=== PATIENT | male | born 1950 | race Caucasian/White ===

== ENCOUNTER 2020-04-16 10:06 | Outpatient (CLI) | payer MEDICARE, BC, SELFPAY ==
[2020-04-16 10:48] LABS: Basophils Percent Auto 0.7 % (0.2-1.2); Eosinophils Absolute Auto 0.2 K/mm3 (0-0.3); Eosinophils Percent Auto 4.2 % (0-4.4); Hematocrit 40.7 % (42.0-52.0); Hemoglobin 14.4 g/dL (14.0-18.0); Immature Granulocyte Absolute 0.01 K/mm3 (0.00-0.031); Immature Granulocyte Percent A 0.2 % (0-0.5); Lymphocytes Absolute Auto 1.35 K/mm3 (0.9-3.2); Lymphocytes Percent Auto 23.8 % (18.3-44.2); Mean Corpuscular HGB Conc 35.4 g/dl (32-36); Mean Corpuscular Hemoglobin 32.1 pg (26-34); Mean Corpuscular Volume 90.8 fl (80-100); Mean Platelet Volume 9.4 fl (7.4-10.4); Monocytes Absolute Auto 0.6 K/mm3 (0.1-0.6); Monocytes Percent Auto 10.7 % (2.6-8.5); Neutrophils Absolute Auto 3.4 K/mm3 (1.3-6.7); Neutrophils Percent Auto 60.4 % (45.5-73.1); Platelet Count Result 236 k/mm3 (150-375); Red Blood Count 4.48 M/mm3 (4.6-6.20); Red Cell Distribution Width 11.5 % (11.5-14.5); White Blood Count 5.7 K/mm3 (4.5-10.0)
[2020-04-16 11:01] LABS: Alanine Aminotransferase 29 U/L (4-50); Albumin Level 4.3 g/dL (3.5-5.1); Alkaline Phosphatase 46 U/L (38-126); Anion Gap 7 mmol/L (8-16); Aspartate Amino Transferase 31 U/L (17-59); Bilirubin,Total 0.8 mg/dL (0.2-1.3); Blood Urea Nitrogen 21 mg/dL (9-20); Calcium 9.9 mg/dL (8.4-10.2); Carbon Dioxide 32 mmol/L (22-30); Chloride 101 mmol/L (98-107); Cholesterol 186 mg/dL (0-200); Estimated Glomerular Filt Rate > 60; Glucose 122 mg/dL (75-110); HDL Direct 39 mg/dL; Potassium 4.2 mmol/L (3.4-5.0); Sodium 140 mmol/L (137-145); Triglycerides 164 mg/dL (<150)
[2020-04-16 11:11] LABS: LDL Cholesterol Direct 105 mg/dL
[2020-04-16 11:38] LABS: Vitamin D 25 Hydroxy 32.3 ng/mL
[2020-04-16 11:52] LABS: Thyroid Stimulating Hormone Reflex 0.849 uIU/mL (0.465-4.68)
== END 2020-04-16 10:07 | disposition home or self-care (01) ==
PROVIDERS: PCP Family Medicine; Visit Provider Nurse Practitioner
DX: E55.9 Vitamin D deficiency, unspecified (principal); I10 Essential (primary) hypertension; E78.5 Hyperlipidemia, unspecified; R53.83 Other fatigue
CPT/HCPCS: 36415; 80053; 80061; 82306; 84443; 85025

== ENCOUNTER 2020-04-25 07:01 | Outpatient (CLI) | payer MEDICARE, BC, SELFPAY ==
--- NOTE | ~2020-04-25 | MR_ITS ---
EXAMINATION: MR knee RT wo con DATE: 04/25/2020 08:03 INDICATION: Right knee pain TECHNIQUE: Magnetic resonance imaging (MRI) of the right knee was performed without intravenous contr ast. Sequences included coronal PD-weighted FSE, coronal PD-weighted FS FSE, sagittal T2-weighted FS E, sagittal PD-weighted FS FSE and axial PD weighted fat saturated FSE. COMPARISON: None. FINDINGS: Medial compartment: Medial meniscus is normal. Partial-thickness chondral ulceration and fissuring involving greater than 50% the cartilage thickness but without degenerative subchondral changes at the anterior weightbeari ng medial femoral condyle. More discrete 5 x 4 mm relatively well-defined deep chondral ulceration at the posterior weightbearing medial femoral condyle. Mild partial thickness cartilage loss with minim al chondral surface regularity at the medial tibial plateau. Lateral compartment: There is a longitudinal vertical tear extending approximately 6 mm AP along the inner third of the maura dy of the lateral meniscus which is seen on both the axial and coronal images. Articular cartilage is normal. Patellofemoral compartment: Small region of partial-thickness chondral ulceration at the medial trochlea. There is a small delami nating tear near the bone chondral interface which extends a couple millimeter laterally from the med ial margin of the cartilage of the medial patellar facet. Ligaments and tendons: Anterior and posterior cruciate ligaments are normal. The medial collateral ligament and fibular sheela ateral ligament complex are normal. The extensor mechanism is normal. The visualized medial and later al hamstring tendons as well as the iliotibial band are normal. Fluid: Physiologic amount of fluid in the joint space. No loose osteochondral bodies identified. Osseous/other: Normal marrow signal. No fracture or pathologic marrow replacing process. Is edema at the superficial suprapatellar fat pad which can be seen with fat pad impingement syndrome. IMPRESSION: 1. Small longitudinal vertical tear in the inner third of the body of the lateral meniscus. 2. 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 3. Edema in the superficial suprapatellar fat pad which can be seen with fat pad impingement syndrome . Reviewed, dictated and finalized at location A. R IMPRESSION: 1. Small longitudinal vertical tear in the inner third of the body of the later al meniscus. 2. Mild medial and patellofemoral osteoarthritis with moderate grade chondromal acia. 3. Edema in the superficial suprapatellar fat pad which can be seen with fat pa d impingement syndrome.
== END 2020-04-25 07:02 | disposition home or self-care (01) ==
LOC: ANHIMG 07:03
PROVIDERS: PCP Family Medicine; Visit Provider Nurse Practitioner
DX: S83.281A Other tear of lateral meniscus, current injury, right knee, initial encounter (principal); M17.11 Unilateral primary osteoarthritis, right knee; M94.261 Chondromalacia, right knee; R60.0 Localized edema
CPT/HCPCS: 73721

== ENCOUNTER 2020-11-22 11:20 | Outpatient (CLI) | payer MEDICARE, SELFPAY ==
[2020-11-22 11:36] LABS: Basophils Absolute Auto 0.05 K/mm3 (0.00-0.10); Eosinophils Percent Auto 7.8 % (1.0-6.0); Hematocrit 41.3 % (37.0-46.0); Hemoglobin 14.3 g/dL (12.4-15.3); Immature Granulocyte Absolute 0.01 K/mm3 (0.00-0.00); Immature Granulocyte Percent A 0.2 % (0.0-0.0); Lymphocytes Absolute Auto 1.23 K/mm3 (1.10-4.50); Mean Corpuscular HGB Conc 34.6 g/dL (32.0-36.0); Mean Corpuscular Hemoglobin 31.8 pg (27.0-31.0); Mean Corpuscular Volume 91.8 fL (78.0-102.0); Mean Platelet Volume 8.9 fl (8.7-11.0); Monocytes Absolute Auto 0.48 K/mm3 (0.10-0.90); Monocytes Percent Auto 9.4 % (2.0-11.0); Neutrophils Percent Auto 57.6 % (50.0-70.0); Platelet Count Result 223 K/mm3 (150-420); Red Cell Distribution Width 11.9 % (11.6-14.4); White Blood Count 5.1 K/mm3 (4.8-10.8)
[2020-11-22 11:55] LABS: Hemoglobin A1C 5.7 % (<5.7)
[2020-11-22 13:08] LABS: Alanine Aminotransferase 30 U/L (16-63); Albumin Level 4.2 g/dL (3.4-5.0); Alkaline Phosphatase 54 U/L (46-116); Anion Gap 11 mmol/L (8-16); Aspartate Amino Transferase 16 U/L (15-37); Bilirubin,Total 0.7 mg/dL (0.00-1.00); Blood Urea Nitrogen 16 mg/dL (7-18); Carbon Dioxide 31 mmol/L (21-32); Chloride 106 mmol/L (98-108); Cholesterol 164 mg/dL (0-200); Estimated Glomerular Filt Rate 51; Glucose 99 mg/dL (70-99); HDL Direct 44 mg/dL (40-60); LDL Cholesterol Calculated 88 mg/dL (<130); Osmolality Calculated 307 mOsm/kg (285-295); Potassium 3.9 mmol/L (3.5-5.1); Prostate Specific Antigen 1.2 ng/mL (< OR = 4.0); Sodium 148 mmol/L (136-145); Total Protein 7.2 g/dL (6.4-8.2); Triglycerides 160 mg/dL (0-150)
[2020-11-22 13:44] LABS: Thyroid Stimulating Hormone Reflex 0.58 u/IU/mL (0.36-3.74)
[2020-11-27 20:02] LABS: Vitamin D 25 Hydroxy 28 ng/mL (30-100)
== END 2020-11-22 11:21 | disposition home or self-care (01) ==
PROVIDERS: PCP Family Medicine; Visit Provider Family Medicine
DX: E78.5 Hyperlipidemia, unspecified (principal); I10 Essential (primary) hypertension; Z00.00 Encounter for general adult medical examination without abnormal findings; R73.9 Hyperglycemia, unspecified; E55.9 Vitamin D deficiency, unspecified; Z12.5 Encounter for screening for malignant neoplasm of prostate
CPT/HCPCS: 36415; 80053; 80061; 82306; 83036; 84153; 84443; 85025; G0103

== ENCOUNTER 2021-01-18 01:10 | Day surgery (SDC) | payer MEDICARE, BC, SELFPAY ==
[2021-01-08 15:11] VITALS: BMI 29.7
[2021-01-18 12:26] VITALS: BP 155/81; PULSE 63; RESP 18; TEMP 36.2; O2SAT 98; BMI 30.2
[2021-01-18] MEDS: LACTATED RINGERS 1,000 ML 150 ML IV CONT (12:40)
--- NOTE | 2021-01-18 13:09 | PM.HPGS ---
History of Present Illness History of Present Illness Consent: Risks, benefits, and alternatives have been discussed and questions answered. Patient agrees to proceed with procedure. Chief complaint: hx of colon polyps Narrative: Alfredo Benson is a 70 year old male with colon polyps about 10 years ago Review of Systems Constitutional: Constitutional: Denies headache(s) and Denies weakness Eyes: Eyes: Denies blurry vision ENT: Reports Normal hearing present, Denies headache(s) and Denies neck pain Cardiovascular: Cardiovascular: Denies chest pain and Denies dyspnea Respiratory: Respiratory: Denies dyspnea Gastrointestinal: Gastrointestinal: Reports no additional gastrointestinal complaints Genitourinary: Genitourinary: Denies dysuria Musculoskeletal: Musculoskeletal: Denies neck pain Integumentary/Breasts: Skin/Breast: Denies dry skin Neurologic: Reports Normal hearing present, Denies headache(s) and Denies weakness Psychiatric: Psychiatric: Denies anxiety Endocrine: Endocrine: Denies change in body appearance Hematologic/Lymphatic: Hematologic/Lymphatic: Denies easy bleeding Allergic/Immunologic: Allergic/Immunologic: Denies urticaria PMFSH Past Medical History Medical History (Updated 01/18/21 @ 13:11 by Linus Alex MD) Colon cancer screening Dyslipidemia GERD without esophagitis History of colon polyps Hypertension Osteoarthritis Restless legs syndrome Surgical History Surgical History History of appendectomy (~1965) Family History Family History Other Diabetes mellitus Hypertension Social History Social History Smoking status: Former smoker Tobacco type: cigarettes Smoking end date: 05/18/83 Alcohol intake: current Alcohol use details: 4 bottles of wine per week Living arrangements: with family Spiritual care concerns: No Meds Home Medications and Allergies Home Medications Medication Instructions Recorded Confirmed Type lisinopril 20 1 tablet PO DAILY #90 tablet 10/18/20 01/08/21 Rx mg-hydrochlorothiazide 12.5 mg tablet famotidine 20 mg tablet 20 mg PO BID #180 tablet 11/22/20 01/08/21 Rx simvastatin 40 mg tablet 40 mg PO QHS tablet 11/22/20 01/08/21 History icosapent ethyl 1 gram capsule 2 g PO BID #360 cap 12/25/20 01/08/21 Rx ropinirole 2 mg tablet 2 mg PO QHS #90 tablet 12/31/20 01/08/21 Rx cholecalciferol (vitamin D3) 25 mcg PO DAILY 01/08/21 01/08/21 History [Vitamin D3] Allergies Allergy/AdvReac Type Severity Reaction Status Date / Time codeine Allergy Other Verified 01/18/21 12:26 Vital Signs Vital Signs - 24 hr 01/18/21 12:26 Temperature 97.2 F L Pulse Rate 63 Respiratory Rate 18 Blood Pressure 155/81 H Pulse Oximetry 98 Exam Const: General: comfortable and no acute distress HENMT: General nose exam: Normal nares present Eyes: General: appearance normal, both eyes and all related structures Neck: Neck: no JVD Resp: Auscultation: clear to auscultation bilaterally Cardio: Rate: regular rate Rhythm: regular rhythm GI: Inspection: non-distended GI Palp: Yes Soft to palpation Skin: General skin exam: normal color Neuro: General: gait normal Speech: normal speech Extrem: General: normal to inspection Psych: Mental Status: mental status grossly normal Assessment and Plan Assessment and plan (1) Colon cancer screening: Code(s): Z12.11 - Encounter for screening for malignant neoplasm of colon Status: Acute Assessment and Plan: colonoscopy
[2021-01-18 13:34] VITALS: BP 102/54; PULSE 67; RESP 18; O2SAT 100
[2021-01-18 13:44] VITALS: BP 110/54; PULSE 61; RESP 20; O2SAT 100
[2021-01-18 13:54] VITALS: BP 109/57; PULSE 66; RESP 21; O2SAT 100
== END 2021-01-18 14:14 | disposition home or self-care (01) ==
PROVIDERS: PCP Family Medicine; Visit Provider Internal Medicine Gastroenterology
PROC: 0DJD8ZZ Inspection of Lower Intestinal Tract, Via Natural or Artificial Opening Endoscopic (ICD-10-PCS; CPT 45378; principal; 2021-01-18 13:15)
DX: Z12.11 Encounter for screening for malignant neoplasm of colon (principal); D12.8 Benign neoplasm of rectum; K64.4 Residual hemorrhoidal skin tags; K57.30 Diverticulosis of large intestine without perforation or abscess without bleeding; K21.9 Gastro-esophageal reflux disease without esophagitis; G25.81 Restless legs syndrome; E78.5 Hyperlipidemia, unspecified; M19.90 Unspecified osteoarthritis, unspecified site; Z87.891 Personal history of nicotine dependence
CPT/HCPCS: 45385; 88305; J2704; J7120

== ENCOUNTER 2021-05-29 11:40 | Outpatient (CLI) | payer MEDICARE, SELFPAY ==
[2021-05-29 12:50] LABS: Alanine Aminotransferase 28 U/L (16-63); Albumin Level 4.2 g/dL (3.4-5.0); Alkaline Phosphatase 50 U/L (46-116); Anion Gap 8 mmol/L (8-16); Aspartate Amino Transferase 22 U/L (15-37); Bilirubin,Total 0.6 mg/dL (0.00-1.00); Blood Urea Nitrogen 15 mg/dL (7-18); Calcium 9.3 mg/dL (8.5-10.1); Carbon Dioxide 32 mmol/L (21-32); Chloride 102 mmol/L (98-108); Estimated Glomerular Filt Rate 54; Glucose 66 mg/dL (70-99); Osmolality Calculated 292 mOsm/kg (285-295); Sodium 142 mmol/L (136-145); Total Protein 7.4 g/dL (6.4-8.2)
== END 2021-05-29 11:41 | disposition home or self-care (01) ==
LOC: CHSLAB 11:42
PROVIDERS: PCP Family Medicine; Visit Provider Family Medicine
DX: I10 Essential (primary) hypertension (principal)
CPT/HCPCS: 36415; 80053

== ENCOUNTER 2021-06-04 08:58 | Outpatient (CLI) | payer MEDICARE, BC, SELFPAY ==
--- NOTE | ~2021-06-04 | US_ITS ---
EXAMINATION: US aorta [facility] DATE: 06/04/2021 09:55 INDICATION: Encounter for screening for cardiovascular disorder. Risk factors of hypertension, hyperc holesterolemia and smoking. TECHNIQUE: Grayscale, color Doppler, and pulsed Doppler images of the aorta and common iliac arteries were obtained. COMPARISON: None. FINDINGS: The proximal aorta measures 2.9 cm. The mid aorta measures 2.1 cm. The distal aorta measures 2.1 cm. The right common iliac artery measures 1.4 cm. The left common iliac artery measures 1.1 cm. IMPRESSION: 1. Normal caliber abdominal aorta. Reviewed, dictated and finalized at location A. R DELIVERY RN
== END 2021-06-04 08:59 | disposition home or self-care (01) ==
LOC: ANHIMG 09:02
PROVIDERS: PCP Family Medicine; Visit Provider Family Medicine
DX: Z13.6 Encounter for screening for cardiovascular disorders (principal)
CPT/HCPCS: 76706

== ENCOUNTER 2021-12-12 09:03 | Outpatient (CLI) | payer MEDICARE, SELFPAY ==
[2021-12-12 09:27] LABS: Hematocrit 40.3 % (37.0-46.0); Mean Corpuscular HGB Conc 34.7 g/dL (32.0-36.0); Mean Corpuscular Hemoglobin 32.4 pg (27.0-31.0); Mean Corpuscular Volume 93.3 fL (78.0-102.0); Mean Platelet Volume 9.7 fl (8.7-11.0); Platelet Count Result 192 K/mm3 (150-420); Red Blood Count 4.32 M/mm3 (4.70-6.10); Red Cell Distribution Width 12.2 % (11.6-14.4); White Blood Count 4.2 K/mm3 (4.8-10.8)
[2021-12-12 10:03] LABS: Band Neutrophils Percent 0 % (0-6); Eosinophils Absolute Manual 0.42 K/mm3 (0.02-0.5); Eosinophils Percent Manual 10 % (1-6); Lymphocytes Absolute Manual 0.67 K/mm3 (1.1-4.5); Lymphocytes Percent Manual 16 % (18-44); Monocytes Absolute Manual 0.79 K/mm3 (0.1-0.90); Monocytes Percent Manual 19 % (3-9); Neutrophils Absolute Manual 2.31 K/mm3 (1.3-6.7); Neutrophils Percent Manual 55 % (46-73); Platelet Estimate Adequate (Adequate); Total Cells Counted 100
[2021-12-12 10:56] LABS: Alanine Aminotransferase 26 U/L (16-63); Albumin Level 4.1 g/dL (3.4-5.0); Alkaline Phosphatase 51 U/L (46-116); Anion Gap 7 mmol/L (8-16); Aspartate Amino Transferase 20 U/L (15-37); Bilirubin,Total 0.5 mg/dL (0.00-1.00); Blood Urea Nitrogen 19 mg/dL (7-18); Calcium 9.2 mg/dL (8.5-10.1); Carbon Dioxide 28 mmol/L (21-32); Chloride 104 mmol/L (98-108); Cholesterol 160 mg/dL (0-200); Estimated Glomerular Filt Rate 51; Glucose 104 mg/dL (70-99); HDL Direct 45 mg/dL (40-60); LDL Cholesterol Calculated 93 mg/dL (<130); Osmolality Calculated 290 mOsm/kg (285-295); Prostate Specific Antigen 0.5 ng/mL (< OR = 4.0); Sodium 139 mmol/L (136-145); Triglycerides 111 mg/dL (0-150)
[2021-12-12 11:00] LABS: Thyroid Stimulating Hormone Reflex 0.92 u/IU/mL (0.36-3.74)
[2021-12-19 14:59] LABS: Vitamin D 25 Hydroxy 59 ng/mL (30-100)
== END 2021-12-12 09:04 | disposition home or self-care (01) ==
LOC: CHSLAB 09:05
PROVIDERS: PCP Family Medicine; Visit Provider Family Medicine
DX: E55.9 Vitamin D deficiency, unspecified (principal); I10 Essential (primary) hypertension; Z12.5 Encounter for screening for malignant neoplasm of prostate; Z00.00 Encounter for general adult medical examination without abnormal findings; E78.5 Hyperlipidemia, unspecified
CPT/HCPCS: 36415; 80053; 80061; 82306; 84153; 84443; 85025; G0103

== ENCOUNTER 2021-12-16 19:45 | Outpatient (CLI) | payer MEDICARE, BC, SELFPAY ==
--- NOTE | 2022-01-15 11:37 | WPDSLEEPSTUD ---
Sleep Study Date of Study: 12/16/21 Ordering Provider: Lisandra Figueredo MD Interpreting Physician: Dariela Orlando MD Sleep Study Type: Polysomnogram Height: 1.7 m Weight: 89.811 kg Body Mass Index: 31.0 Neck Circumference (inches): 18 [place]: 4 Reason for Sleep Study Hypersomnia Sleep History Alfredo Benson is a 71 year old man with multiple episodes of waking at night to go urinate. He also wakes due to pain in his elbows and shoulders. He has restless legs syndrom, normally takes ropinirole BID, but did not have this on the night of his study. He rarely awakens from sleep feeling short of breath. He occasionally awakens at night with heartburn, belching and coughing. He occasionally snores and frequently is loud enough that others complain about it. He rarely has trouble sleeping with a cold. He does not wake up gasping for breath at night. He rarely has breathing problems at night observed by others. He occasionally sweats excessively at night and notices his heart pounding or beating irregularly at night. He frequently falls asleep during the day but rarely involuntarily, never while driving. He rarely has loss of muscle tone with strong emotion. He does not have daytime difficulties at work due to excessive sleepiness. He does not feel paralyzed on waking or falling asleep. He does not have vivid dreamlike scenes upon awakening or falling asleep. He does not feel afraid to go to sleep. He rarely has nightmares. He occasionally remembers his dreams. He frequently has racing thoughts. He rarely feels sad or depressed. He occasionally has anxiety. He occasionally has muscular tension and notices parts of his body jerking. He rarely kicks at night. He occasionally has crawling and aching feelings in his legs. He frequently has leg pain at night. He does not have morning jaw pain. He rarely grinds his teeth at night. He frequently is bothered by pain during the day and frequently awakened by pain during the night. He rarely wakes up feeling stiff in the morning. He frequently wakes up with sore or achy muscles and frequently wakes up with pain in the neck and spine. He has memory problems. Normal bedtime 8:30 p.m. to 10:00 p.m. taking not long to fall asleep typically waking 2-4 times at night for 1/2 hour or so. He always urinates when he wakes up. He wakes in the morning between 5 and 6:00 a.m.. His weekend schedule is the same. He estimates getting 5-8 hours of sleep at night. He does not take naps. He does not feel refreshed after short nap. Habits: Previously was a smoker. Caffeine: He drinks soda daily. He has a half bottle of wine every other day. No recreational drugs. [facility] Past Medical History Medical History BPH (benign prostatic hyperplasia) CKD (chronic kidney disease) stage 3, GFR 30-59 ml/min Dyslipidemia GERD without esophagitis History of colon polyps Hypertension Osteoarthritis Restless legs syndrome Scalp pain Vitamin D deficiency Surgical History Surgical History History of appendectomy (~1965) Family History Family History Other Diabetes mellitus Hypertension Social History Social History Smoking status: Former smoker Tobacco type: cigarettes Smoking end date: 05/18/83 Alcohol intake: current Alcohol use details: 4 bottles of wine per week Substance use: never Substance use type: does not use Gender identity (if verbalized by the patient): Male Sexual Orientation (if Verbalized by the Patient): Straight or Heterosexual Spiritual care concerns: No Agree to blood products: Yes Medications Home Medications Medication Instructions Recorded Confirmed Type cholecalciferol (vitamin D3) 50 50 mcg PO DAILY 05/29/2111/16
[2022-01-15 11:56] VITALS: BMI 31.0
== END 2021-12-17 07:10 | disposition home or self-care (01) ==
LOC: CHSCSM 19:47
PROVIDERS: PCP Family Medicine; Visit Provider Family Medicine
DX: G47.61 Periodic limb movement disorder (principal)
CPT/HCPCS: 95810

== ENCOUNTER 2022-01-28 09:29 | Outpatient (CLI) | payer MEDICARE, BC, SELFPAY ==
--- NOTE | ~2022-01-28 | XR_ITS ---
EXAMINATION: XR shoulder LT min 2V DATE: 01/28/2022 10:13 INDICATION: Chronic bilateral shoulder pain TECHNIQUE: 1. AP internally rotated, AP oblique externally rotated and axillary views of the left shoulder were obtained. 2. AP internally rotated, AP oblique externally rotated and axillary views of the right shoulder were obtained. COMPARISON: None FINDINGS: Normal alignment at both shoulders. Distal right clavicle has been resected. No fracture.Moderate ost eoarthritis at the left acromioclavicular and bilateral glenohumeral joints. Soft tissues are unremar kable. Small calcified nodules in the right upper lung zone consistent with old granulomatous disease . Calcified pleural plaques along the anterolateral left mid to upper lung zone. IMPRESSION: Chronic distal right clavicle resection with moderate osteoarthritis at the left acromioclavicular an d bilateral glenohumeral joints. Reviewed, dictated and finalized at location A. IMPRESSION: Chronic distal right clavicle resection with moderate osteoarthritis at the lef t acromioclavicular and bilateral glenohumeral joints.
--- NOTE | ~2022-01-28 | XR_ITS ---
EXAMINATION: XR shoulder RT min 2V DATE: 01/28/2022 10:13 INDICATION: Chronic bilateral shoulder pain TECHNIQUE: 1. AP internally rotated, AP oblique externally rotated and axillary views of the left shoulder were obtained. 2. AP internally rotated, AP oblique externally rotated and axillary views of the right shoulder were obtained. COMPARISON: None FINDINGS: Normal alignment at both shoulders. Distal right clavicle has been resected. No fracture. Moderate os teoarthritis at the left acromioclavicular and bilateral glenohumeral joints. Soft tissues are unrema rkable. Small calcified nodules in the right upper lung zone consistent with old granulomatous diseas e. Calcified pleural plaques along the anterolateral left mid to upper lung zone. IMPRESSION: Chronic distal right clavicle resection with moderate osteoarthritis at the left acromioclavicular an d bilateral glenohumeral joints. Reviewed, dictated and finalized at location A. IMPRESSION: Chronic distal right clavicle resection with moderate osteoarthritis at the lef t acromioclavicular and bilateral glenohumeral joints.
== END 2022-01-28 09:30 | disposition home or self-care (01) ==
PROVIDERS: PCP Family Medicine; Visit Provider Orthopaedic Surgery
DX: M25.512 Pain in left shoulder (principal); M25.511 Pain in right shoulder; G89.29 Other chronic pain
CPT/HCPCS: 73030

== ENCOUNTER 2022-07-22 09:59 | Outpatient (RCR) | payer MEDICARE, BC, SELFPAY ==
--- NOTE | 2022-07-22 11:18 | PTOPEVAL1 ---
Assessment and note entered by Cadence Stevenson DPT Evaluation Information Assessment Status Evaluation Diagnosis low back pain, B shoulder pain Onset 05/18/22 Subjective Information Patient reports he has had low back pain that increased about 2 months ago. He reports that he has gained some weight within the last 4-5 months and he contributes that to start of pain. He reports pain is along the belt line with occasional radiates down the R LE to the knee. He also reports he has done a lot of home contruction and likes to stay busy. He has pain with gardening and performing house hold tasks. He reports he also has B shoulder pain and has a history of R clavicle resection. Reported Pain Level Pain Score 3,3: Self Report Assessment PT Clinical Summary Patient is a 72 year old male who presents to PT with low back and R shoulder pain. Patient demonstrates decreased B hip strength, impaired posture, decreased flexibility and decreased strength of the R UE impairing his ability to garden and do house hold work without increase in pain. Patient would benefit from skilled PT to address impairments and return to PLOF. Plan of Care Interventions Electrical Stimulation,Gait Training,Hot Pack/Cold Pack,Manual Therapy,Neuro Re-education,Patient/ Caregiver Educati,Therapeutic Activities, Therapeutic Exercise PT Services Indicated Yes Treatment Frequency and 2x weekly for 12 visits Duration These treatments will address the objective and functional deficits as defined above. The patient will be advanced safely and appropriately in order for the patient to progress towards his/her prior level of function. Additional exercises will be introduced and as well as a comprehensive home exercise program upon discharge, if needed, ?to ensure carryover of functional gains achieved in the clinic. This treatment plan has been reviewed and agreement upon by the patient.
--- NOTE | 2022-08-25 16:23 | PTOPEVAL1 ---
Assessment and note entered by Rajeev Bright Evaluation Information Assessment Status Progress Diagnosis low back pain, B shoulder pain Onset 05/18/22 Subjective Information Pt. reports the discomfort in the back and shoulders has decreased. He reports that he tries to remain active and notices his at home activities have been more comfortable. He states that pain is still most notable with long periods of standing. Assessment PT Clinical Summary Pt. demonstrates improved subjective reports of pain. He continues to presents with u.e. weakness and impairements in postural awareness. Recommend continued skilled PT to address remaining strength deficits and postural awareness . Plan of Care Interventions Electrical Stimulation,Hot Pack/Cold Pack,Manual Therapy,Neuro Re-education,Therapeutic Activities, Therapeutic Exercise PT Services Indicated Yes Treatment Frequency and Continue treatment 2x/week x 1 week. continue Duration therapeutic exercise and activities to improve strength. Continue modality care as indicated to address pain. These treatments will address the objective and functional deficits as defined above. The patient will be advanced safely and appropriately in order for the patient to progress towards his/her prior level of function. Additional exercises will be introduced and as well as a comprehensive home exercise program upon discharge, if needed, ?to ensure carryover of functional gains achieved in the clinic. This treatment plan has been reviewed and agreement upon by the patient.
--- NOTE | 2022-08-28 11:01 | PTOPEVAL1 ---
Assessment and note entered by JT File, PT Evaluation Information Assessment Status Discharge Diagnosis low back pain, B shoulder pain Onset 05/18/22 Subjective Information patient reports he feels good today. he reports he has noticed less pain in the lower back overall . however, his pain is still related to how active he is. he reports he continues to be able to [place] in [place]ree[place]mud and work on his yard moving dirt as needed. he reports he is planning to return to the MD for follow up. he reports no improvement in his R shoulder, but reports he has been dealing with the shoulder for years. Reported Pain Level Pain Score 5,2: Self Report Assessment PT Clinical Summary mr. dillon presents to skilled PT for his 12th skilled therapy visit. although he continues to have pain from time to time in the lower back, his pain is less and is only brought on by prolonged activities. he has met nearly 50% of goals for skilled PT, and has return to all home care and recreational activities only requiring increased time/breaks. he would benefit from continued HEP independently at home with no need for continued skilled PT intervention at this time. Plan of Care Interventions Electrical Stimulation,Hot Pack/Cold Pack,Manual Therapy,Neuro Re-education,Therapeutic Activities, Therapeutic Exercise PT Services Indicated Yes Treatment Frequency and DC to independent HEP and MD follow up Duration These treatments will address the objective and functional deficits as defined above. The patient will be advanced safely and appropriately in order for the patient to progress towards his/her prior level of function. Additional exercises will be introduced and as well as a comprehensive home exercise program upon discharge, if needed, ?to ensure carryover of functional gains achieved in the clinic. This treatment plan has been reviewed and agreement upon by the patient.
== END 2022-08-28 16:24 | disposition home or self-care (01) ==
LOC: CHSPT 09:59
PROVIDERS: Visit Provider Family Medicine
DX: M54.50 Low back pain, unspecified (principal); G89.29 Other chronic pain
CPT/HCPCS: 97014; 97110; 97161; 97530; G0283

== ENCOUNTER 2022-12-22 09:31 | Outpatient (RCR) | payer MEDICARE, BC, SELFPAY ==
--- NOTE | 2022-12-23 17:41 | PTOPEVAL1 ---
Assessment and note entered by Rajeev Bright Evaluation Information Assessment Status Evaluation Diagnosis right foot pain Onset 09/21/22 Subjective Information Pt. reports that his right foot pain began about 3 months ago. He states that he did not have an incident, just recalls a sudden onset. He describes his pain on the outside of the right foot. He states that he is on his feet often and enjoys walking to collect arrowheads. He states that his foot pain has worsened over the past 3 months. He states that pain can last all day and will worsen later in the day. He states that he can experience a sharp pain with walking and the foot will give out almost resulting in a fall. He recalls having to catch himself on several occasions to prevent a fall. He states that he has not attempted any pain relief techniques. He states that Reported Pain Level Pain Score 4: Self Report Assessment PT Clinical Summary Pt. is a 72 year old male who enters the clinic with right foot pain. He presents with pain with WB and palpation, impaired DF ROM, weakness and impaired gait. Continued skilled PT is indicated in order to improve these areas to allow the pt. to be able to complete all IADL's with improved comfort. Plan of Care Interventions Electrical Stimulation,Gait Training,Hot Pack/Cold Pack,Manual Therapy,Neuro Re-education,Patient/ Caregiver Educati,Therapeutic Activities, Therapeutic Exercise PT Services Indicated Yes Treatment Frequency and 2x/week x 10 visits Duration These treatments will address the objective and functional deficits as defined above. The patient will be advanced safely and appropriately in order for the patient to progress towards his/her prior level of function. Additional exercises will be introduced and as well as a comprehensive home exercise program upon discharge, if needed, ?to ensure carryover of functional gains achieved in the clinic. This treatment plan has been reviewed and agreement upon by the patient.
--- NOTE | 2022-12-23 17:42 | OPREHPOC ---
Outpatient Therapy Plan of Care This is a Multidisciplinary Plan of Care that may contain components documented by all disciplines (PT, OT, and ST.) PT Problem 1 PT Problem #1 Knowledge Deficit PT Goal 1 Goal Pt. will be independent with a HEP addressing PT Problem 2 PT Problem #2 Impaired Range of Motion PT Goal 1 Goal Pt. will achieve 10 degrees active right ankle dorsiflexion with the knee fully extended. Target Visit 10 PT Problem 3 PT Problem #3 Impaired Gait PT Goal 1 Goal Pt. will ambulate over uneven and level terrain without deviation and 1/10 pain at worst. Target Visit 10 PT Problem 4 PT Problem #4 Impaired Strength PT Goal 1 Goal Pt. will present with ability to complete right single limb heel raise for 5 reps with 1/10 pain to improve gait and indicating improved strength Target Visit 10
--- NOTE | 2023-01-01 10:09 | PTOPPROGNS ---
Assessment and note entered by Mary Lopes, PT Evaluation Information Assessment Status Progress Diagnosis R foot pain Onset 09/21/22 Subjective Information Alfredo reports he went to the doctor yesterday and was diagnosed with a bone spur on the top of his foot. He had an injection in his right foot yesterday and the pain he had went away almost immediately. He was able to then go home and work in the yard for 3+ hours yesterday without difficulty or pain. He does still feel stiffness and a little tenderness when he touches the painful area. He would like to try exercises on his own for a week and see how he does. Assessment PT Clinical Summary Alfredo Benson has completed 4 skilled PT visits for right foot pain. He presents today after getting an injection on 12/31/22 and reports minimal pain. He was able to walk in his yard for 3+ hours yesterday after the injection. Since he is not having much pain, he has requested to try exercises independently. He is demonstrating improved right ankle AROM on this date. He continues to demonstrate decreased gastrocnemius flexbility, decreased gastrocnemius strength with single leg heel raises, decreased extensor digitorum brevis strength, impaired balance, and tenderness at the extensor digitorum brevis muscle and cuboid bone. He is being putting on hold from formal PT for one week, if he continues to have minimal pain, he will be discharged. Plan of Care Interventions Electrical Stimulation,Hot Pack/Cold Pack,Manual Therapy,Neuro Re-education,Patient/Caregiver Educati,Therapeutic Exercise PT Services Indicated Yes Treatment Frequency and PT on hold x 1 week then possible discharge Duration These treatments will address the objective and functional deficits as defined above. The patient will be advanced safely and appropriately in order for the patient to progress towards his/her prior level of function. Additional exercises will be introduced and as well as a comprehensive home exercise program upon discharge, if needed, ?to ensure carryover of functional gains achieved in the clinic. This treatment plan has been reviewed and agreement upon by the patient.
== END 2023-01-01 15:24 | disposition home or self-care (01) ==
LOC: CHSPT 09:31
PROVIDERS: Visit Provider Family Medicine
DX: M79.671 Pain in right foot (principal); S46.812D Strain of other muscles, fascia and tendons at shoulder and upper arm level, left arm, subsequent encounter
CPT/HCPCS: 97014; 97110; 97112; 97140; 97161; G0283

== ENCOUNTER 2023-01-17 09:50 | Outpatient (CLI) | payer MEDICARE, BC, SELFPAY ==
[2023-01-17 10:06] LABS: Basophils Absolute Auto 0.03 K/mm3 (0.00-0.10); Basophils Percent Auto 0.6 % (0.0-1.0); Eosinophils Absolute Auto 0.23 K/mm3 (0.02-0.50); Eosinophils Percent Auto 4.4 % (1.0-6.0); Hematocrit 38.8 % (37.0-46.0); Hemoglobin 13.6 g/dL (12.4-15.3); Immature Granulocyte Absolute 0.01 K/mm3 (0.00-0.00); Immature Granulocyte Percent A 0.2 % (0.0-0.0); Lymphocytes Absolute Auto 1.03 K/mm3 (1.10-4.50); Lymphocytes Percent Auto 19.7 % (18.0-42.0); Mean Corpuscular HGB Conc 35.1 g/dL (32.0-36.0); Mean Corpuscular Hemoglobin 32.4 pg (27.0-31.0); Mean Corpuscular Volume 92.4 fL (78.0-102.0); Mean Platelet Volume 8.7 fl (8.7-11.0); Monocytes Absolute Auto 0.49 K/mm3 (0.10-0.90); Monocytes Percent Auto 9.4 % (2.0-11.0); Neutrophils Absolute Auto 3.5 K/mm3 (1.7-7.2); Neutrophils Percent Auto 65.7 % (50.0-70.0); Platelet Count Result 226 K/mm3 (150-420); Red Cell Distribution Width 12.2 % (11.6-14.4); White Blood Count 5.2 K/mm3 (4.8-10.8)
[2023-01-17 11:39] LABS: Alanine Aminotransferase 7 U/L (16-63); Albumin Level 3.9 g/dL (3.4-5.0); Alkaline Phosphatase 61 U/L (46-116); Anion Gap 7 mmol/L (8-16); Aspartate Amino Transferase 23 U/L (15-37); Bilirubin,Total 0.6 mg/dL (0.00-1.00); Blood Urea Nitrogen 11 mg/dL (7-18); Calcium 8.7 mg/dL (8.5-10.1); Carbon Dioxide 32 mmol/L (21-32); Chloride 102 mmol/L (98-108); Cholesterol 163 mg/dL (0-200); Estimated Glomerular Filt Rate 60; Glucose 118 mg/dL (70-99); HDL Direct 42 mg/dL (40-60); LDL Cholesterol Calculated 100 mg/dL (<130); Osmolality Calculated 292 mOsm/kg (285-295); Potassium 3.7 mmol/L (3.5-5.1); Prostate Specific Antigen 0.3 ng/mL (< OR = 4.0); Sodium 141 mmol/L (136-145); Total Protein 6.9 g/dL (6.4-8.2); Triglycerides 106 mg/dL (0-150); Vitamin B12 294 pg/mL (193-986)
[2023-01-17 11:42] LABS: Thyroid Stimulating Hormone Reflex 0.89 u/IU/mL (0.36-3.74)
[2023-01-20 09:44] LABS: Hemoglobin A1C 5.8 % (<5.7)
[2023-01-21 20:13] LABS: Vitamin D 25 Hydroxy 40 ng/mL (30-100)
== END 2023-01-17 09:51 | disposition home or self-care (01) ==
LOC: CHSLAB 09:52
PROVIDERS: PCP Family Medicine; Visit Provider Family Medicine
DX: R73.9 Hyperglycemia, unspecified (principal); E55.9 Vitamin D deficiency, unspecified; E53.8 Deficiency of other specified B group vitamins; Z12.5 Encounter for screening for malignant neoplasm of prostate; I10 Essential (primary) hypertension; E78.5 Hyperlipidemia, unspecified
CPT/HCPCS: 36415; 80053; 80061; 82306; 82607; 83036; 84153; 84443; 85025; G0103

== ENCOUNTER 2023-06-22 11:21 | Outpatient (CLI) | payer MEDICARE, BC, SELFPAY ==
[2023-06-22 14:16] LABS: Alanine Aminotransferase 18 U/L (6-50); Albumin Level 4.2 g/dL (3.5-5.1); Alkaline Phosphatase 53 U/L (38-126); Anion Gap 4 mmol/L (8-16); Aspartate Amino Transferase 43 U/L (17-59); Bilirubin,Total 0.7 mg/dL (0.2-1.3); Blood Urea Nitrogen 20 mg/dL (9-20); Calcium 9.6 mg/dL (8.4-10.2); Carbon Dioxide 33 mmol/L (22-30); Chloride 101 mmol/L (98-107); Estimated Glomerular Filt Rate 59; Glucose 106 mg/dL (65-110); Potassium 4.2 mmol/L (3.4-5.0); Sodium 138 mmol/L (137-145)
[2023-06-22 16:08] LABS: Hemoglobin A1C 5.8 % (<5.7)
== END 2023-06-22 11:22 | disposition home or self-care (01) ==
PROVIDERS: PCP Family Medicine; Visit Provider Family Medicine
DX: R73.03 Prediabetes (principal); I10 Essential (primary) hypertension
CPT/HCPCS: 36415; 80053; 83036

== ENCOUNTER 2023-10-10 08:14 | Outpatient (CLI) | payer MEDICARE, BC, SELFPAY ==
--- NOTE | ~2023-10-10 | MR_ITS ---
EXAMINATION: MR brain/brain stem wo con DATE: 10/10/2023 12:19 INDICATION: Other headache syndrome. TECHNIQUE: Magnetic resonance imaging (MRI) of the brain and brainstem was performed without intraven ous contrast. COMPARISON: Brain MRI 04/20/2015 FINDINGS: There are scattered areas of nonspecific increased T2-weighted signal intensity in the cere bral white matter, which is within normal limits for the patient's age. There is no intracranial hemo rrhage, acute infarction, or abnormal intracranial mass lesion. The ventricles are normal in size. Th e paranasal sinuses are clear. The orbits are normal. There is a trace right mastoid effusion. IMPRESSION: 1. Normal aging brain. Reviewed, dictated and finalized at location A. IMPRESSION: 1. Normal aging brain.
== END 2023-10-10 08:15 | disposition home or self-care (01) ==
LOC: CHSIMG 08:16
PROVIDERS: PCP Family Medicine; Visit Provider Student in an Organized Health Care Education/Training Program
DX: G44.89 Other headache syndrome (principal)
CPT/HCPCS: 70551

== ENCOUNTER 2023-12-28 09:53 | Outpatient (CLI) | payer MEDICARE, BC, SELFPAY ==
--- NOTE | ~2023-12-28 | XR_ITS ---
XR hip BI 2V w AP pelvis Ordering provider: Catalino Figueredo MD History: . RYANNE HIP PAIN,LT>RT,CHRONIC . Comparison: March 01, 2014 FINDINGS: BONES: No acute fracture or dislocation. HIP JOINT SPACES: Bilateral hip osteoarthritic changes. SACROILIAC JOINT SPACES/LUMBAR SPINE: The sacroiliac joint spaces are normal. Mild degenerative arce es of the visualized lower lumbar spine. PUBIC SYMPHYSIS: Normal. SOFT TISSUES: Normal. IMPRESSION: No acute osseous abnormality of the bilateral hips and pelvis. Reviewed, dictated and finalized at location A.
[2023-12-28 10:17] LABS: Basophils Absolute Auto 0.04 K/mm3 (0.00-0.10); Basophils Percent Auto 0.7 % (0.0-1.0); Eosinophils Absolute Auto 0.22 K/mm3 (0.02-0.50); Eosinophils Percent Auto 4.1 % (1.0-6.0); Hematocrit 36.2 % (37.0-46.0); Hemoglobin 12.8 g/dL (12.4-15.3); Immature Granulocyte Absolute 0.01 K/mm3 (0.00-0.00); Immature Granulocyte Percent A 0.2 % (0.0-0.0); Lymphocytes Absolute Auto 0.99 K/mm3 (1.10-4.50); Lymphocytes Percent Auto 18.5 % (18.0-42.0); Mean Corpuscular HGB Conc 35.4 g/dL (32-36); Mean Corpuscular Hemoglobin 32.3 pg (27.0-31.0); Mean Corpuscular Volume 91.4 fL (78.0-102.0); Mean Platelet Volume 8.6 fl (8.7-11.0); Monocytes Absolute Auto 0.49 K/mm3 (0.10-0.90); Monocytes Percent Auto 9.2 % (2.0-11.0); Neutrophils Absolute Auto 3.59 K/mm3 (1.70-7.20); Neutrophils Percent Auto 67.3 % (50.0-70.0); Platelet Count Result 226 K/mm3 (150-420); Red Blood Count 3.96 M/mm3 (4.70-6.10); Red Cell Distribution Width 12.4 % (11.6-14.4); White Blood Count 5.3 K/mm3 (4.8-10.8)
[2023-12-28 11:05] LABS: Hemoglobin A1C 5.9 % (<5.7)
[2023-12-28 11:43] LABS: Alanine Aminotransferase 27 U/L (16-63); Alkaline Phosphatase 66 U/L (46-116); Aspartate Amino Transferase 20 U/L (15-37); Bilirubin,Total 0.6 mg/dL (0.00-1.00); Blood Urea Nitrogen 9 mg/dL (7-18); Calcium 9.1 mg/dL (8.5-10.1); Chloride 100 mmol/L (98-108); Cholesterol 157 mg/dL (0-200); Estimated Glomerular Filt Rate 60; Glucose 115 mg/dL (70-99); HDL Direct 38 mg/dL (40-60); LDL Cholesterol Calculated 77 mg/dL (<130); Osmolality Calculated 289 mOsm/kg (285-295); Potassium 3.8 mmol/L (3.5-5.1); Prostate Specific Antigen 0.4 ng/mL (< OR = 4.0); Sodium 140 mmol/L (136-145); Total Protein 6.9 g/dL (6.4-8.2); Triglycerides 208 mg/dL (0-150); Vitamin B12 564 pg/mL (193-986)
[2023-12-28 12:04] LABS: Anion Gap 9 mmol/L (4-12); Carbon Dioxide 31 mmol/L (21-32)
[2023-12-28 12:05] LABS: Thyroid Stimulating Hormone Reflex 0.69 u/IU/mL (0.36-3.74)
[2023-12-29 21:44] LABS: Vitamin D 25 Hydroxy 38 ng/mL (30-100)
== END 2023-12-28 09:54 | disposition home or self-care (01) ==
LOC: CHSLAB 09:55
PROVIDERS: PCP Family Medicine; Visit Provider Family Medicine
DX: E78.5 Hyperlipidemia, unspecified (principal); Z12.5 Encounter for screening for malignant neoplasm of prostate; R73.03 Prediabetes; E55.9 Vitamin D deficiency, unspecified; G89.29 Other chronic pain; M25.551 Pain in right hip; M25.552 Pain in left hip; I10 Essential (primary) hypertension
CPT/HCPCS: 36415; 73521; 80053; 80061; 82306; 82607; 83036; 84153; 84443; 85025; G0103

== ENCOUNTER 2024-01-01 09:12 | Outpatient (RCR) | payer MEDICARE, BC, SELFPAY ==
--- NOTE | 2024-01-01 10:29 | OPREHPOC ---
Outpatient Therapy Plan of Care This is a Multidisciplinary Plan of Care that may contain components documented by all disciplines (PT, OT, and ST.) PT Problem 1 PT Problem #1 Knowledge Deficit PT Goal 1 Goal The patient will be independent in a home exercise program. Target Visit 2 PT Problem 2 PT Problem #2 Pain PT Goal 1 Goal 1. The patient will demonstrate minimal tenderness at the left hip greater trochanter. 2. The patient will report no greater than 3/10 bilateral hip pain with gardening. Target Visit 10 PT Problem 3 PT Problem #3 Impaired Functional Mobil PT Goal 1 Goal 1. The patient will demonstrate 15% or less self perceived disability per the LEFS. 2. The patient will demonstrate the ability to get into and out of a kneeling position with 2/10 or less left hip pain to return to gardening. Target Visit 10 PT Problem 4 PT Problem #4 Impaired Gait PT Goal 1 Goal The patient will be able to ambulate 1,200 feet during the 6 minute walk test with no greater than 2/10 hip pain to improve community ambulation. Target Visit 10 PT Problem 5 PT Problem #5 Impaired Range of Motion PT Goal 1 Goal The patient will demonstrate improved left hip internal and external rotation to 20+ degrees to improve mobility for gait and daily actvities. Target Visit 10
--- NOTE | 2024-01-01 10:29 | PTOPEVAL1 ---
Assessment and note entered by Mary Lopes, PT Evaluation Information Assessment Status Evaluation ICD-10 Condition Codes (PT) Pain in right hip M25.551,Pain in left hip M25.552 Onset 12/23/23 Subjective Information Alfredo Benson reports he started having left hip pain about 4-5 weeks ago for unknown reasons. He notes the pain is worst in am and he has trouble getting up from sitting and from kneeling. He reports he has a lot of gardens and will kneel to pull weeds and pick vegetables. He has a lot of pain on the side of the left hip and to the front of the groin. He has had pain high enough that he has almost fallen. He also has right hip pain that has been chronic. He enjoys hunting for arrowheads and is unable to do that currently due to hip pain. He had x-rays performed that showed arthritic changes. His doctor recommended he try PT. Reported Pain Level Pain Score 5: Self Report Assessment PT Clinical Summary Alfredo Benson presents with left hip pain with an insidious onset 4-5 weeks ago. He also has chronic right hip pain. Recent x-rays showed arthritic changes in the hip joint. He has difficulty with performing hobbies of gardening and arrowhead hunting, squatting, getting in/out of a car, and initial walking after standing or first thing in am. He objectively demonstrates tenderness over the left greater trochanter; decreased and painful left hip abduction, internal rotation, and external rotation; decreased hip and core strength; altered gait; and decreased functional abilities. Positive findings noted with the left hip scour test, FADIR and GET positions. He will benefit from skilled PT to address these limitations. Plan of Care Interventions Electrical Stimulation,Hot Pack/Cold Pack,Manual Therapy,Neuro Re-education,Patient/Caregiver Educati,Therapeutic Activities,Therapeutic Exercise PT Services Indicated Yes Treatment Frequency and 3 times a week for 10 visits Duration These treatments will address the objective and functional deficits as defined above. The patient will be advanced safely and appropriately in order for the patient to progress towards his/her prior level of function. Additional exercises will be introduced and as well as a comprehensive home exercise program upon discharge, if needed, ?to ensure carryover of functional gains achieved in the clinic. This treatment plan has been reviewed and agreement upon by the patient.
--- NOTE | 2024-01-15 17:27 | PCPTNOTE ---
Patient did not show up for scheduled appointment this date.
== END 2024-01-25 10:02 | disposition home or self-care (01) ==
LOC: CHSPT 09:12
PROVIDERS: Visit Provider Family Medicine
DX: M25.551 Pain in right hip (principal); M25.552 Pain in left hip; G89.29 Other chronic pain
CPT/HCPCS: 97014; 97110; 97140; 97150; 97161; 97530; G0283

== ENCOUNTER 2024-07-13 15:22 | Outpatient (CLI) | payer MEDICARE, BC, SELFPAY ==
--- OUTSIDE RECORDS SUMMARY | 2024-07-13 17:47 | XMS_ITS | Encounter Summary ---
Author Organization [facility] Address [address] [place] [address] Phone Care Team Providers Care Cooker Cleaner Name Role Phone Lisandra Figueredo MD Primary Care Provider Azar Holley MD Unavailable [phone] Reason for Visit * Reason Comments Medication Refill Encounter Details Date Type Department Care Team (Late st Contact Info) Description 04/20/2023 Refill [facility] - [facility] - [place] [address] [place] [address] Amelie Madison, AMBULATORY CARE NURSE, TIE TAPE MACHINE OPERATOR [address] [place] [address] Medication Refill Social History Tobacco Use Types Packs/Day Years Used Date Smoking Tobacco: Former Cigarettes 1 20 0 05/18/1977 - 05/18/1997 Alcohol Use Standard Drinks/Week Comments Yes 0 (1 standard drink = 0.6 oz pur e alcohol) 2 bottles of wine per week Sex and Gender Information Value Date Recorded Sex Assigned at Not on file Legal Sex Male 10:54 AM CDT Gender Identity Not on file Sexual Orientation Not on file documented as of this encounter Plan of Treatment Not on file documented as of this encounter Visit Diagnoses Not on filedocumented in this encounter Care Teams Cooker Cleaner Relationship Specialty Start Date End Date Lisandra Figueredo MD [address] [facility] [address] [place] [address] PCP - General Family Medicine 02/11/23 Azar Holley MD [address] [place] [address] Consulting Physician Neurology 06/01/23 documented as of this encounter
--- OUTSIDE RECORDS SUMMARY | 2024-07-13 17:47 | XMS_ITS | Encounter Summary ---
Author Organization [facility] Address [address] [place] [address] Phone Care Team Providers Care Spent Grain Dryer Name Role Phone Lisandra Figueredo MD Primary Care Provider Azar Holley MD Unavailable [phone] Reason for Visit * Reason Comments Medication Refill Encounter Details Date Type Department Care Team (Late st Contact Info) Description 08/12/2023 Refill [facility] [address] [place] [address] Azar Holley MD [address] [place] [address] Medication Refill Social History Tobacco Use Types Packs/Day Years Used Date Smoking Tobacco: Former Cigarettes 1 20 0 05/18/1977 - 05/18/1997 Smokeless Tobacco: Never Alcohol Use Standard Drinks/Week Comments Yes 0 (1 standard drink = 0.6 oz pur e alcohol) 2 bottles of wine per week Sex and Gender Information Value Date Recorded Sex Assigned at Not on file Legal Sex Male 10:54 AM CDT Gender Identity Not on file Sexual Orientation Not on file documented as of this encounter Miscellaneous Notes * Telephone Encounter - Alix Daniel RN - 08/13/2023 8:40 AM CDT Medication failed the protocol, provider to review and approve the medication order if appropriate. Requested Prescriptions Pending Prescriptions Disp Refills gabapentin (NEURONTIN) 300 MG Capsule [Pharmacy Med Name: GABAPENTIN CAPS 300MG] 30 Capsule 3 Sig: TAKE 1 CAPSULE NIGHTLY Not Delegated - Anticonvulsants Excluding Benzodiazepines Protocol Failed - 08/12/2023 7:36 AM Failed - This refill cannot be delegated Passed - Visit with relevant provider in past 12 months or upcoming 90 days Recent Visits Date Type Provider Dept 06/01/23 Office Visit Azar Holley MD [facility] [place] [address] Showing recent visits within past 365 days and meeting all other requirements Future Appointments Date Type Provider Dept 11/10/23 Appointment Azar Holley MD [facility] [place] [facility] Show[facility] future appointments within next 90 days and meeting all other requirements documented in this encounter Plan of Treatment Not on file documented as of this encounter Visit Diagnoses Not on filedocumented in this encounter Care Teams Spent Grain Dryer Relationship Specialty Start Date End Date Lisandra Figueredo MD [address] [place] [address] [address] [place] [address] PCP - General Family Medicine 02/11/23 Azar Holley MD [address] [place] [address] Consulting Physician Neurology 06/01/23 documented as of this encounter
--- OUTSIDE RECORDS SUMMARY | 2024-07-13 17:47 | XMS_ITS | Clinical Summary ---
Author Organization [facility] Address [address] [place] [address] Phone Care Team Providers Care Dog Or Horse Racing Official Name Role Phone Lisandra Figueredo MD Primary Care Provider Azar Holley MD Unavailable [phone] Allergies No known active allergies Medications Cholecalciferol (Vitamin D) 2000 UNIT Tablet Take by mouth. Active simvastatin (ZOCOR) 40 MG Tablet Take 40 mg by mouth every evening. Active famotidine (PEPCID) 20 MG Tablet Take 20 mg by mouth 2 times daily. Active finasteride (PROSCAR) 5 MG Tablet Take 5 mg by mouth daily. Active Icosapent Ethyl 1 g Capsule Take by mouth. Active rOPINIRole (REQUIP) 2 MG Tablet Take 2 mg by mouth 2 times daily. Active lisinopril-hydr oCHLOROthiazide (PRINZIDE, ZESTORETIC) 20-12.5 MG Tablet Take 1 Tablet by mouth daily. Active gabapentin (NEURONTIN) 300 MG Capsule TAKE 1 CAPSULE NIGHTLY 30 Capsule 3 08/13/2023 Active Social History Tobacco Use Types Packs/Day Years Used Date Smoking Tobacco: Former Cigarettes 1 20 0 05/18/1977 - 05/18/1997 Smokeless Tobacco: Never Tobacco Cessation:Counseling Given: Not Answered Alcohol Use Standard Drinks/Week Comments Yes 0 (1 standard drink = 0.6 oz pur e alcohol) 2 bottles of wine per week Sex and Gender Information Value Date Recorded Sex Assigned at Not on file Legal Sex Male 10:54 AM CDT Gender Identity Not on file Sexual Orientation Not on file Last Filed Vital Signs Vital Sign Reading Time Taken Comments Blood Pressure 118/78 06/01/2023 10:28 AM [employer] Pulse 87 06/01/2023 10:28 AM [employer] Temperature 36.2 C (97.2 F) 06/01/2023 10:28 AM [employer] Respiratory Rate 20 06/01/2023 10:28 AM [employer]GER [employer] Oxygen Saturation 97% 06/01/2023 10:28 AM MANAGER [employer] Inhaled Oxygen Concentration - - Weight 92.1 kg (203 lb) 06/01/2023 10:28 AM MANAGER [employer] Height 170.2 cm (5' 7 ) 06/01/2023 10:28 AM [employer]NAGER [employer] Body Mass Index 31.79 06/01/2023 10:28 AM [employer]NAGER [employer] Plan of Treatment Health Maintenance Due Date Last Done Comments Hepatitis C Virus (HCV) Screening 1950 Colonoscopy 1995 Colorectal Cancer Screening 1995 Cologuard 2000 Immunochemical Fecal Occult Blood 2000 Zoster Immunization (1 of 2) 2000 AAA Screening Ultrasound 2015 Influenza Immunization (#1) 01/17/202401/16, 01/22/2022, 04/15/2021, Additional history exists SARS-COV-2 Immunization ( season) 2024 04/20/2023, 04/15/2021, 08/26/2020, Additional history exists Respiratory Syncytial Virus (RSV) Immunization (Adult) (1 - 1-dose 75+ series) 2025 Pneumococcal Immunization (50+ years) Completed 02/20/2020, 04/17/2018, 02/22/2018 DTaP/Tdap/Td Immunization Discontinued 01/22/2022 TdaP Immunization Completed 01/22/2022 Hepatitis B Immunization Aged Out No longer eligible based on patient's age to complete this topic Meningococcal Immunization (ACWY) Aged Out No longer eligible based on patient's age to complete this topic Rotavirus Immunization Aged Out No lo nger eligible based on patient's age to complete this topic Insurance MEDICARE [facility] Care Teams Dog Or Horse Racing Official Relationship Specialty Start Date End Date Lisandra Figueredo MD [address] [place] [address] PCP - General Family Medicine 02/11/23 Azar Holley MD [address] [place] [id number] Consulting Physician Neurology 06/01/23
[2024-07-13 20:07] LABS: Hemoglobin A1C 5.6 % (<5.7)
[2024-07-13 21:03] LABS: Alanine Aminotransferase 21 U/L (6-50); Albumin Level 4.3 g/dL (3.5-5.1); Alkaline Phosphatase 46 U/L (38-126); Anion Gap 9 mmol/L (4-12); Aspartate Amino Transferase 30 U/L (17-59); Bilirubin,Total 0.8 mg/dL (0.2-1.3); Blood Urea Nitrogen 15 mg/dL (9-20); Carbon Dioxide 30 mmol/L (22-30); Chloride 98 mmol/L (98-107); Estimated Glomerular Filt Rate 59; Glucose 112 mg/dL (65-110); Potassium 3.8 mmol/L (3.4-5.0); Sodium 137 mmol/L (137-145)
== END 2024-07-13 15:23 | disposition home or self-care (01) ==
LOC: ANHGOSHLAB 15:24
PROVIDERS: PCP Family Medicine; Visit Provider Family Medicine
DX: R73.03 Prediabetes (principal); I10 Essential (primary) hypertension
CPT/HCPCS: 36415; 80053; 83036